=== PATIENT | female | born 1950 | race African-American/Black ===

== ENCOUNTER 2016-06-09 15:05 | Emergency (ER) | payer MEDICAID ==
[~2016-06-09] VITALS: Ht 157.5 cm; Wt 81.2 kg
[2016-06-09 16:31] VITALS: BP 176/89
[2016-06-09] MEDS ORDERED: ZITHROMAX250 MG ORAL (16:34)
[2016-06-09] MEDS ORDERED: ROBITUSSIN COU118 M4 PO (16:34)
[2016-06-09 16:37] VITALS: BP 176/89
--- NOTE | 2016-06-09 22:42 | Emergency Room Report ---
History of Present Illness General Chief Complaint: Upper Respiratory Illness Source: Patient Present Illness HPI The patient is a 66-year-old female who denies any medical history presenting for subjective fever and cough which began 2 weeks prior. The patient denies any sick contacts or recent travel. Pt admits to night sweats. Pt denies CP, SOB , N, V, hemoptysis Allergies: Coded Allergies: No Known Allergies (Unverified , 06/09/16) Patient History Past Medical History: see triage record Pertinent Family History: none Reviewed Nursing Documentation: PMH: Agreed, PSxH: Agreed Nursing Documentation-PMH Past Medical History: No Stated History Review of Systems All Other Systems: negative except mentioned in HPI Physical Exam Vital Signs Date Time Temp Pulse Resp B/P Pulse Ox O2 Delivery O2 Flow Rate FiO2 06/09/16 15:12 98.2 60 19 176/89 98 06/09/16 16:31 Room Air Sp02 EP Interpretation: reviewed, normal General Appearance: no apparent distress, alert, GCS 15, non-toxic Head: normocephalic, atraumatic Eyes: bilateral eye PERRL, bilateral eye normal inspection ENT: hearing grossly normal, normal pharynx, no angioedema, normal voice, TMs + canals normal, uvula midline, moist mucus membranes Neck: full range of motion, supple/symm/no masses Respiratory: chest non-tender, speaking full sentences, wheezing - LLL Cardiovascular #1: regular rate, rhythm, no edema Cardiovascular #2: 2+ carotid (R), 2+ carotid (L), 2+ radial (R), 2+ radial (L) , 2+ dorsalis pedis (R), 2+ dorsalis pedis (L) Gastrointestinal: normal bowel sounds, non tender, soft, non-distended, no guarding, no rebound Rectal: deferred Genitourinary: normal inspection, no CVA tenderness Musculoskeletal: back normal, gait/station normal, normal range of motion, non- tender Neurologic: alert, oriented x3, responsive, motor strength/tone normal, sensory intact, speech normal Psychiatric: judgement/insight normal, memory normal, mood/affect normal, no suicidal/homicidal ideation Reflexes: 3+ bicep (R), 3+ bicep (L), 3+ tricep (R), 3+ tricep (L), 3+ knee (R) , 3+ knee (L) Skin: normal color, no rash, warm/dry, well hydrated Lymphatic: no adenopathy Medical Decision Making PA Attestation Dr. Morris is my supervising physician. Patient management was discussed with my supervising physician Diagnostic Impression: Primary Impression: Pneumonia ER Course The patient is a 66-year-old female who denies any medical history presenting for subjective fever and cough which began 2 weeks prior. Differential diagnosis include but not limited to pharyngitis, sinusitis, pneumonia, rhinitis PE: No apparent distress. Afebrile No TTP over maxillary or frontal sinuses. Lungs LLL wheezing. No accessory muscle use. Heart: RRR, no abnormal heart sounds Ears: external auditory canal clear. Non erythematous. Bilat TM intact. Cone of light present bilat. No bulging of TM. No serous fluid seen. no nasal D/C no anterior cervical lymphad No tonsillar exudate. Uvula midline.Oropharynx non erythematous Pt will be DC'ed home with prescription for azithromycin and cough medication. ER precautions given. Last Vital Signs Date Time Temp Pulse Resp B/P Pulse Ox O2 Delivery O2 Flow Rate FiO2 06/09/16 16:37 98.2 60 19 176/89 98 Room Air Status: improved Disposition: HOME, SELF-CARE Condition: Improved Scripts Guaifenesin/Dextromethorphan (Robitussin Cough-Chest Dm Liq) 118 Ml Liquid 10 ML PO Q4HR, #118 ML Prov: MARU OLIVARES P.A. 06/09/16 Azithromycin* (ZITHROMAX*) 250 Mg Tablet 250 MG ORAL DAILY, #6 TAB 0 Refills Take two tables once daily for 1 day, then one tablet once daily for 4 days. Prov: MARU OLIVARES P.A. 06/09/16 Patient Instructions: Community-Acquired Pneumonia, Adult Additional Instructions: I discussed my findings with the patient. All questions and concerns have been answered. Treatment and medication compliance have been addressed. I advised the patient that they need to follow up with PMD in 3-5 days. Return to ED if pain remains or worsens, cough worsens or remains, you notice blood in your sputum, you notice wheezing, you experience a fever, or if needed for any reason. Patient verbalized understanding of discharge instructions. MARU OLIVARES Jun 09, 2016 22:42
== END 2016-06-09 16:45 | disposition home or self-care (01) ==
LOC: EMR 16:20
DX: J18.9 Pneumonia, unspecified organism (principal)
CPT/HCPCS: 99282

== ENCOUNTER 2016-06-25 10:22 | Emergency (ER) | payer MEDICAID ==
[~2016-06-25] VITALS: Ht 157.5 cm; Wt 81.2 kg
[~2016-06-25 10:22] MED LIST: ROBITUSSIN COU118 M4 PO; ZITHROMAX250 MG ORAL
[2016-06-25 10:30] VITALS: BP 158/95
--- NOTE | 2016-06-25 10:44 | Emergency Room Report ---
History of Present Illness General Chief Complaint: Chest Pain Source: Patient Present Illness HPI Patient presents with complaints of continued cough and congestion she reports that she was here previously began feeling better with the medication However now she feels that the cough has returned She also reports chills and night sweats denies any hemoptysis Denies any vomiting or diarrhea denies any recent travel Allergies: Coded Allergies: No Known Allergies (Unverified , 06/09/16) Patient History Past Medical History: see triage record Pertinent Family History: none Last Menstrual Period: na Now: No : 0 Para: 0 Reviewed Nursing Documentation: PMH: Agreed, PSxH: Agreed Nursing Documentation-PMH Past Medical History: No Stated History Review of Systems All Other Systems: negative except mentioned in HPI Physical Exam Vital Signs Date Time Temp Pulse Resp B/P Pulse Ox O2 Delivery O2 Flow Rate FiO2 06/25/16 10:25 98.1 66 18 158/95 99 Room Air Sp02 EP Interpretation: reviewed, normal General Appearance: well appearing, no apparent distress Head: normocephalic, atraumatic Eyes: bilateral eye EOMI, bilateral eye PERRL ENT: hearing grossly normal, normal pharynx, TMs + canals normal, uvula midline Neck: full range of motion, supple, no meningismus, no bony tend Respiratory: lungs clear, normal breath sounds, no rhonchi, no respiratory distress, no retraction, no accessory muscle use Cardiovascular #1: normal peripheral pulses, regular rate, rhythm, no edema, no gallop, no JVD, no murmur Gastrointestinal: normal bowel sounds, non tender, soft, no mass, no organomegaly, non-distended, no guarding, no hernia, no pulsatile mass, no rebound Genitourinary: no CVA tenderness Musculoskeletal: normal inspection Neurologic: oriented x3, responsive, lift operator III-XII nml as tested, motor strength/ tone normal, sensory intact Psychiatric: mood/affect normal Skin: normal color, no rash, warm/dry, palpation normal Lymphatic: normal inspection, no adenopathy Medical Decision Making Diagnostic Impression: Primary Impression: Bronchitis ER Course Given her repeat presentation chest x-ray imaging was obtained My consideration for cardiac pathology is low given the complaint of exam Imaging study was normal and the patient's symptoms patient stable for initial conservative outpatient trial Chest X-Ray Diagnostic Results EP Interpretation: Yes Findings: no consolidation, no effusion, no pneumothorax Number of Views: 1 Last Vital Signs Date Time Temp Pulse Resp B/P Pulse Ox O2 Delivery O2 Flow Rate FiO2 06/25/16 10:25 98.1 66 18 158/95 99 Room Air Status: improved Disposition: HOME, SELF-CARE Condition: Improved Scripts Albuterol Sulfate* (ALBUTEROL SULFATE MDI*) 8.5 Gm Hfa.aer.ad 2 PUFF INH Q6H, #1 EA 0 Refills Prov: TAIWO HARTMAN D.O. 06/25/16 Referrals: [facility],REFERR[facility] (PCP) Additional Instructions: Patient is provided with the discharge instructions notified to follow up with primary doctor in the next 2-3 days otherwise return to the er with any worsening symptoms. TAIWO HARTMAN D.O. Jun 25, 2016 10:44
[2016-06-25] MEDS ORDERED: LEVAQUIN500 MG ORAL (11:14)
[2016-06-25] MEDS ORDERED: ALBUTEROL SULF8.5 GM INH (11:14)
[2016-06-25 11:22] VITALS: BP 158/95
--- NOTE | 2016-06-29 11:45 | Diagnostic Imaging Report ---
Indication: Dyspnea Comparison: None A single view chest radiograph was obtained. Findings: Cardiomediastinal appearance is within normal limits for age. Pulmonary vascularity is appropriate. The diaphragmatic contour is smooth and costophrenic angles are sharp. No pleural effusions are identified. The bones are unremarkable. Impression: No acute findings
== END 2016-06-25 11:22 | disposition home or self-care (01) ==
LOC: EMR 10:33
DX: J20.9 Acute bronchitis, unspecified (principal)
CPT/HCPCS: 71010; 99283

== ENCOUNTER → 2017-06-07 | Emergency (ER) | payer MEDICARE, MEDICAID ==
[~2017-06-07] VITALS: Ht 154.9 cm; Wt 85.7 kg
[~2017-06-07] MED LIST changes: +ALBUTEROL SULF8.5 GM INH; +Albuterol ud Inhalation HHN ONE; +CLARITIN-D 121 EAC1 ORAL; +GUAIFENESIN-CO118 M1 ORAL; +GUAIFENESIN1200 MG PO; +LEVAQUIN500 MG ORAL; +PROMETHAZINE-C118 M1 ORAL; +SULFAMETHOXAZO473 ML ORAL; +TESSALON PERLE100 MG ORAL
--- NOTE | 2017-06-07 14:09 | Emergency Room Report ---
History of Present Illness General Chief Complaint: Upper Respiratory Illness Source: Patient Present Illness HPI 67-year-old female presents emergency department complaining of nonproductive cough times one week with generalized body aches. She reports increased phlegm in the throat but she is unable to clear. She reports intermittent nasal congestion and rhinorrhea that comes and goes. Night swelling in the lower extremities, difficulty breathing. She denies chest pain. States her symptoms are worse at night. She reports some chills denies fevers. She states she did not receive her flu vaccination this year. She states that she became ill this time last year with similar symptoms. Denies CP, Palpitations, LOC, AMS, dizziness, Changes in Vision, Sensation, paresthesias, or a sudden severe headache. Allergies: Coded Allergies: No Known Allergies (Unverified , 06/09/16) Patient History Past Medical History: see triage record Past Surgical History: none Pertinent Family History: none Last Menstrual Period: na Reviewed Nursing Documentation: PMH: Agreed, PSxH: Agreed Nursing Documentation-PMH Past Medical History: No Stated History Review of Systems All Other Systems: negative except mentioned in HPI Physical Exam Vital Signs Date Time Temp Pulse Resp B/P (MAP) Pulse Ox O2 Delivery O2 Flow Rate FiO2 06/07/17 13:57 98.2 70 20 150/96 95 Room Air Sp02 EP Interpretation: reviewed, normal General Appearance: no apparent distress, alert, GCS 15, non-toxic Head: normocephalic, atraumatic Eyes: bilateral eye normal inspection, bilateral eye PERRL ENT: hearing grossly normal, normal voice Neck: full range of motion Respiratory: chest non-tender, speaking full sentences, wheezing - scant wheezing bilaterally with expiration, no ronchi, rales or cracles Cardiovascular #1: regular rate, rhythm, no edema, normal capillary refill Gastrointestinal: non tender, soft Rectal: deferred Musculoskeletal: back normal, gait/station normal, normal range of motion, non- tender Neurologic: alert, oriented x3, responsive, motor strength/tone normal, sensory intact, normal gait, speech normal Skin: normal color, no rash, warm/dry, well hydrated Lymphatic: no adenopathy Medical Decision Making PA Attestation Dr. Mckinley is my supervising Physician whom patient management has been discussed with. Diagnostic Impression: Primary Impression: Bronchitis ER Course 67-year-old female presents emergency department complaining of nonproductive cough times one week with generalized body aches. She reports increased phlegm in the throat but she is unable to clear. She reports intermittent nasal congestion and rhinorrhea that comes and goes. Night swelling in the lower extremities, difficulty breathing. She denies chest pain. States her symptoms are worse at night. She reports some chills denies fevers. She states she did not receive her flu vaccination this year. She states that she became ill this time last year with similar symptoms. Denies CP, Palpitations, LOC, AMS, dizziness, Changes in Vision, Sensation, paresthesias, or a sudden severe headache. Ddx considered but are not limited to URI, pneumonia, PE, strep pharyngitis, meningitis, bronchitis, CHF, pulmonary edema just to name a few. Vital signs: Pt.is afebrile VS are WNL, pt. is well appearing, non-toxic, NAD. H&PE are most consistent with bronchitis ORDERS: none required at this time, the diagnosis is clinical ED INTERVENTIONS: -Albuterol HHN improvement of lung sounds bilaterally. -I discussed with this patient I reviewed her chart from last year when she describes pain prescribed a medication for 5 days and then requiring additional days before her symptoms resolved I saw that she was given azithromycin on both visits and I discussed with her that most likely it did not resolve after the first round was because it was probably viral and not bacterial in nature I discussed with her that she has no indications of bacterial infection at this time and that I believe she will have good prognosis with conservative treatment. Discussed with her she develops fevers, worsening of her symptoms to return to the emergency department and we will reevaluate her for need of antibiotics at that time. DISCHARGE: At this time pt. is stable for d/c to home. Will provide printed patient care instructions, and any necessary prescriptions. Care plan and follow up instructions have been discussed with the patient prior to discharge. Last Vital Signs Date Time Temp Pulse Resp B/P (MAP) Pulse Ox O2 Delivery O2 Flow Rate FiO2 06/07/17 13:57 98.2 70 20 150/96 95 Room Air Disposition: HOME, SELF-CARE Condition: Stable Scripts Loratadine/Pseudoephedrine (CLARITIN-D 12 HOUR TABLET) 1 Each Tab.er.12h 1 TAB ORAL EVERY 12 HOURS for 5 Days, #10 TAB Prov: Keiko Paredes 06/07/17 Guaifenesin (Guaifenesin) 1,200 Mg Tab.er.12h 1200 MG PO BID for 10 Days, #20 TAB Prov: Keiko Paredes 06/07/17 Benzonatate* (TESSALON PERLE*) 100 Mg Capsule 100 MG ORAL THREE TIMES A DAY for 5 Days, #20 PERLE Prov: Keiko Paredes 06/07/17 Codeine/Promethazine Hcl* (PROMETHAZINE-CODEINE SYRUP*) 118 Ml Syrup 5 ML ORAL Q6H Y for For Cough, #240 ML 0 Refills Prov: Keiko Paredes 06/07/17 Patient Instructions: Acute Bronchitis, Uvlk-uw-[id number], Upper Respiratory Infection, Adult Additional Instructions: Take medications as directed. Follow up with a Primary Care Provider in 3-5 days, even if your symptoms have resolved. --Please review list of primary care clinics, if you do not already have a primary care provider Return sooner to ED if new symptoms occur, or current symptoms become worse. Do not drink alcohol, drive, or operate heavy machinery while taking Cough Syrup as this may cause drowsiness. - Please note that this Emergency Department Report was dictated using [employer] lpn technology software, occasionally this can lead to erroneous entry secondary to interpretation by the dictation equipment. Keiko Paredes Jun 07, 2017 14:09
[2017-06-07 14:25] VITALS: BP 150/96
[2017-06-07 15:47] VITALS: BP 150/96
== END | disposition home or self-care (01) ==
LOC: EMR 14:18
DX: J40 Bronchitis, not specified as acute or chronic (principal)
CPT/HCPCS: 94640; 94664; 99284

== ENCOUNTER 2017-08-23 13:50 | Emergency (ER) | payer MEDICARE, MEDICAID ==
[~2017-08-23] VITALS: Ht 154.9 cm; Wt 83.9 kg
[~2017-08-23 13:50] MED LIST changes: -Albuterol ud Inhalation HHN ONE; -GUAIFENESIN-CO118 M1 ORAL; -SULFAMETHOXAZO473 ML ORAL
[2017-08-23 14:06] VITALS: BP 181/83
[2017-08-23] MEDS ORDERED: Albuterol ud Inhalation HHN ONE (14:15)
[2017-08-23] MEDS ORDERED: Ipratropium 0.02% Inh Soln 2.5ml UD HHN ONE (14:15)
--- NOTE | 2017-08-23 14:25 | Emergency Room Report ---
History of Present Illness General Chief Complaint: Upper Respiratory Illness Source: Patient Present Illness HPI Patient presents with several months of upper respiratory symptoms. In addition to that she has more dyspnea on exertion. She's been walking and finds that her breath keeps her from walking as far she has in the past. She denies chest pain. She has also not had fevers. She hears herself wheezing at night. In the past she was told she had a bronchial infection and was treated with azithromycin - twice. She also had a prescription for a codeine preparation however was unable to fill that. The cough is not keeping her awake at night. It's a dry cough and there is no colored phlegm. She denies muscle aches. She has occasional charley horses in her left calf. There is no constant pain there or edema. In addition she complains about arthritis in her knees. No nausea vomiting diarrhea dysuria change in bowel habits. She denies headache also. She's not had a cardiac workup in the past. She doesn't have a private physician. She denies any cardiac problems. She is not treated for hypertension or diabetes and she has never smoked. Allergies: Coded Allergies: No Known Allergies (Unverified , 06/09/16) Patient History Past Medical History: see triage record Social History: Denies: smoking, alcohol use, drug use Social History Narrative Retired chartered accountant Last Menstrual Period: na Reviewed Nursing Documentation: PMH: Agreed, PSxH: Agreed Nursing Documentation-PMH Past Medical History: No History, Except For Review of Systems All Other Systems: negative except mentioned in HPI Physical Exam Vital Signs Date Time Temp Pulse Resp B/P (MAP) Pulse Ox O2 Delivery O2 Flow Rate FiO2 08/23/17 13:56 98.6 75 16 154/77 95 Room Air 98.6 Sp02 EP Interpretation: reviewed, normal General Appearance: well appearing, no apparent distress, GCS 15 Head: normocephalic Eyes: bilateral eye normal inspection, bilateral eye PERRL ENT: moist mucus membranes Neck: supple Respiratory: chest non-tender, lungs clear, normal breath sounds Cardiovascular #1: regular rate, rhythm Cardiovascular #2: 2+ radial (R) Gastrointestinal: normal inspection, normal bowel sounds, non tender, no mass, non-distended, overweight Musculoskeletal: back normal, gait/station normal, normal range of motion Neurologic: alert, oriented x3, grossly normal Psychiatric: mood/affect normal Skin: normal inspection, warm/dry, other - lipoma behind R ear Medical Decision Making Diagnostic Impression: Primary Impression: Dyspnea on exertion Additional Impressions: UTI (urinary tract infection) Qualified Codes: N30.00 - Acute cystitis without hematuria Bronchospasm ER Course The patient presents with upper respiratory complaints. She has wheezy at night so there is a bronchospastic component. The fact she has dyspnea on exertion is disconcerting as we need to exclude cardiac cause. Differential includes bronchospasm, bronchitis, acute myocardial infarction, atypical angina , deconditioning, PE amongst others. Latter is less likely based on history and physical. Pneumonia is unlikely with lack of fever or productive cough. She will be evaluated with EKG, chest x-ray and labs. She will be treated with bronchodilators. EKG without injury. CXR clear. Labs remarkable for normal WBC and troponin. UA shows pyuria. Improved with breathing treatments. Discussed need for her own MD and cardiac work up. Patient improved. Patient stable for outpatient observation and treatment. Laboratory Tests Test 08/23/17 14:20 08/23/17 14:30 White Blood Count 8.1 K/UL (4.8-10.8) Red Blood Count 5.21 M/UL (4.20-5.40) Hemoglobin 15.0 G/DL (12.0-16.0) Hematocrit 45.2 % (37.0-47.0) Mean Corpuscular Volume 87 FL (80-99) Mean Corpuscular Hemoglobin 28.7 PG (27.0-31.0) Mean Corpuscular Hemoglobin Concent 33.1 G/DL (32.0-36.0) Red Cell Distribution Width 12.6 % (11.6-14.8) Platelet Count 304 K/UL (150-450) Mean Platelet Volume 6.5 FL (6.5-10.1) Neutrophils (%) (Auto) 67.0 % (45.0-75.0) Lymphocytes (%) (Auto) 25.2 % (20.0-45.0) Monocytes (%) (Auto) 6.1 % (1.0-10.0) Eosinophils (%) (Auto) 1.0 % (0.0-3.0) Basophils (%) (Auto) 0.6 % (0.0-2.0) Prothrombin Time 9.8 SEC (9.30-11.50) Prothrombin Time INR 0.9 (0.9-1.1) PTT 25 SEC (23-33) Sodium Level 142 MMOL/L (136-145) Potassium Level 3.7 MMOL/L (3.5-5.1) Chloride Level 106 MMOL/L (98-107) Carbon Dioxide Level 27 MMOL/L (21-32) Anion Gap 9 mmol/L (5-15) Blood Urea Nitrogen 13 mg/dL (7-18) Creatinine 1.0 MG/DL (0.55-1.30) Estimate Glomerular Filtration Rate > 60 mL/min (>60) Glucose Level 92 MG/DL (74-106) Calcium Level 8.8 MG/DL (8.5-10.1) Total Bilirubin 0.5 MG/DL (0.2-1.0) Aspartate Amino Transferase (AST) 13 U/L (15-37) L Alanine Aminotransferase (ALT) 19 U/L (12-78) Alkaline Phosphatase 76 U/L (46-116) Total Creatine Kinase 316 U/L (26-308) H Troponin I 0.000 ng/mL (0.000-0.056) Pro-B-Type Natriuretic Peptide 26 pg/mL (0-125) Total Protein 7.7 G/DL (6.4-8.2) Albumin 3.5 G/DL (3.4-5.0) Globulin 4.2 g/dL Albumin/Globulin Ratio 0.8 (1.0-2.7) L Urine Color Pale yellow Urine Appearance Clear Urine pH 7 (4.5-8.0) Urine Specific [place] 1.010 (1.005-1.035) Urine Protein Negative (NEGATIVE) Urine Glucose (UA) Negative (NEGATIVE) Urine Ketones Negative (NEGATIVE) Urine Occult Blood 1+ (NEGATIVE) H Urine Nitrite Negative (NEGATIVE) Urine Bilirubin Negative (NEGATIVE) Urine Urobilinogen Normal MG/DL (0.0-1.0) Urine Leukocyte Esterase 2+ (NEGATIVE) H Urine RBC 0-2 /HPF (0 - 2) Urine WBC 5-10 /HPF (0 - 2) H Urine Squamous Epithelial Cells Few /LPF (NONE/OCC) Urine Bacteria Occasional /HPF (NONE) EKG Diagnostic Results Rate: normal Rhythm: NSR ST Segments: no acute changes Rhythm Strip Diag. Results EP Interpretation: yes Rhythm: NSR, no PVC's, no ectopy Chest X-Ray Diagnostic Results Chest X-Ray Diagnostic Results : Chest X-Ray Ordered: Yes # of Views/Limited/Complete: 1 View Indication: Other EP Interpretation: Yes Interpretation: no consolidation, no effusion, no pneumothorax, no acute cardiopulmonary disease Impression: No acute disease Electronically Signed by: Electronically signed by Toney Marcial MD Last Vital Signs Date Time Temp Pulse Resp B/P (MAP) Pulse Ox O2 Delivery O2 Flow Rate FiO2 08/23/17 16:07 98.6 85 16 128/67 98 Room Air 98.6 08/23/17 14:27 21 Status: improved Disposition: HOME, SELF-CARE Condition: Improved Scripts Sulfamethoxazole/Trimethoprim Susp* (BACTRIM SUSP*) 473 Ml Oral.susp 20 ML ORAL TWICE A DAY for 7 Days, #280 ML Prov: Toney Marcial M.D. 08/23/17 Guaifenesin/Codeine Phos* (ROBITUSSIN AC*) 118 Ml Liquid 1 TSP ORAL Q6H Y for For Cough, #118 ML 0 Refills Prov: Toney Marcial M.D. 08/23/17 Albuterol Sulfate* (ALBUTEROL SULFATE MDI*) 8.5 Gm Hfa.aer.ad 2 PUFF INH Q6H, #1 EA 0 Refills Prov: Toney Marcial M.D. 08/23/17 Toney Marcial M.D. Aug 23, 2017 14:25
[2017-08-23 14:30] VITALS: BP 151/69
[2017-08-23 14:46] LABS: BASOPHILS % (AUTO) 0.6 % (0.0-2.0); HEMATOCRIT 45.2 % (37.0-47.0); LYMPHOCYTES % (AUTO) 25.2 % (20.0-45.0); MEAN CORPUSCULAR VOLUME 87 FL (80-99); MONOCYTES % (AUTO) 6.1 % (1.0-10.0); PLATELET COUNT 304 K/UL (150-450); RED BLOOD COUNT 5.21 M/UL (4.20-5.40); RED CELL DISTRIBUTION WIDTH 12.6 % (11.6-14.8); WHITE BLOOD COUNT 8.1 K/UL (4.8-10.8)
[2017-08-23 14:47] LABS: APPEARANCE,URINE CLEAR; BILIRUBIN, URINE NEGATIVE (NEGATIVE); COLOR,URINE PALE YELLOW; GLUCOSE, URINE (UA) NEGATIVE (NEGATIVE); KETONES,URINE NEGATIVE (NEGATIVE); LEUKOCYTE ESTERASE ,URINE 2+ (NEGATIVE); NITRITE,URINE NEGATIVE (NEGATIVE); PH,URINE 7 (4.5-8.0); PROTEIN,URINE NEGATIVE (NEGATIVE); UROBILINOGEN,URINE NORMAL MG/DL (0.0-1.0)
[2017-08-23 14:49] LABS: ANION GAP 9 mmol/L (5-15); BLOOD UREA NITROGEN 13 mg/dL (7-18); CALCIUM 8.8 MG/DL (8.5-10.1); CARBON DIOXIDE 27 MMOL/L (21-32); CHLORIDE 106 MMOL/L (98-107); POTASSIUM 3.7 MMOL/L (3.5-5.1); SODIUM 142 MMOL/L (136-145)
[2017-08-23 14:51] LABS: INR 0.9 (0.9-1.1)
[2017-08-23 15:01] LABS: ALANINE AMINOTRANSFERASE 19 U/L (12-78); ALBUMIN 3.5 G/DL (3.4-5.0); ALBUMIN/GLOBULIN RATIO 0.8 (1.0-2.7); ALKALINE PHOSPHATASE 76 U/L (46-116); ASPARTATE AMINO TRANSFERASE 13 U/L (15-37); BILIRUBIN,TOTAL 0.5 MG/DL (0.2-1.0); CREATINE KINASE 316 U/L (26-308)
[2017-08-23 15:22] VITALS: BP 152/64
[2017-08-23] MEDS ORDERED: SULFAMETHOXAZO473 ML ORAL (15:51)
[2017-08-23] MEDS ORDERED: GUAIFENESIN-CO118 M1 ORAL (15:51)
[2017-08-23] MEDS ORDERED: ALBUTEROL SULF8.5 GM INH (15:51)
[2017-08-23 16:00] VITALS: BP 128/67
[2017-08-23 16:07] VITALS: BP 128/67
--- NOTE | 2017-08-24 08:56 | Diagnostic Imaging Report ---
Indication: Dyspnea Technique: One view of the chest Comparison: 06/25/2016 Findings: Some atelectasis or scarring is seen at the left lung base, appears similar to previous exam. The lungs and pleural spaces are otherwise clear. Heart size is upper limits of normal Impression: No acute process This agrees with the preliminary interpretation provided by the emergency room physician
--- NOTE | 2017-08-26 20:18 | Cardiology Report ---
APPROVED REPORT EKG Measurement Heart [id number] ME [id number] Normal sinus rhythm Low voltage QRS Borderline ECG
== END 2017-08-23 16:12 | disposition home or self-care (01) ==
LOC: EMR 15:08
DX: R06.00 Dyspnea, unspecified (principal); N39.0 Urinary tract infection, site not specified; J98.01 Acute bronchospasm
CPT/HCPCS: 36415; 71045; 80053; 81003; 82550; 83880; 84484; 85025; 85610; 85730; 93005; 94640; 94664; 99284